=== PATIENT | female | born 1945 | race Caucasian/White ===

== ENCOUNTER → 2016-07-14 | Outpatient (CLI) | payer MEDICARE, OTHER ==
[~2016-07-14] MED LIST: ASA CHILDREN'S81 MG PO; BACTRIM DS DPS1 TAB PO; COLACE-DPS100 MG PO; DILTIAZEM 24HR180 MG PO; HYZAAR-100/251 TAB PO; PLAVIX75 MG PO; PRAVACHOL40 MG PO; TYLENOL DPS325 MG PO; ULTRAM DPS50 MG PO; XANAX DPS0.5 MG PO; ZANAFLEX4 M2 PO; ZOFRAN4 MG PO
== END | disposition home or self-care (01) ==
LOC: RAD.S 10:44
DX: R06.00 Dyspnea, unspecified (principal); G83.9 Paralytic syndrome, unspecified